=== PATIENT | female | born 1935 | race Caucasian/White ===

== ENCOUNTER 2017-04-26 20:00 | Emergency (ER) | payer MEDICARE, OTHER ==
[2017-04-26] MEDS ORDERED: Sodium Chloride 0.9% 500 ML IV ONE (21:07)
[2017-04-26] MEDS ORDERED: Potassium Chloride 20 MEQ Tab.ER PO ONE (21:08)
--- NOTE | 2017-04-26 22:22 | EDM.PDOC ---
ED HPI GENERAL MEDICAL PROBLEM - General Chief Complaint: General Time Seen by Provider: 04/26/17 20:00 Source of Information: Reports: Patient, Family History Limitations: Reports: Physical Impairment - History of Present Illness INITIAL COMMENTS - FREE TEXT/NARRATIVE: 82 years old w f with a h/o HTN came to the ed because she fees "not right", c/ o gen body ache in the past few days.. Family is present. Pt could not specify the reason, why she came to the ed. BP 156/56 pulse 78, Temp 36.6 O2 96 on RA RR 17. No N/V/D no dizziness, denies any acute medical issues. Onset: Unknown/Unsure Onset Date: 04/23/17 Onset Time: 08:00 Duration: Day(s):, Intermittent Location: Reports: Generalized Quality: Reports: Same as Previous Episode, Other (feeling weak) Severity: Mild Improves with: Reports: None Worsens with: Reports: None Context: Reports: Activity - Related Data Allergies Allergy/AdvReac Type Severity Reaction Status Date / Time codeine Allergy Vomiting Verified 04/26/17 20:07 hydrochlorothiazide Allergy Vomiting Verified 04/26/17 20:07 pantoprazole [From Protonix] Allergy Vomiting Verified 04/26/17 20:07 Home Meds: Home Meds Atenolol 100 mg PO DAILY 04/26/17 [History] Esomeprazole [NexIUM] 20 mg PO DAILY 04/26/17 [History] Losartan Potassium 100 mg PO DAILY 04/26/17 [History] amLODIPine [Norvasc] 5 mg PO DAILY 04/26/17 [History] sitaGLIPtin Phos/Metformin HCl [Janumet 50-1,000 MG] 1 tab PO DAILY 04/26/17 [ History] Past Medical History HEENT History: Reports: Impaired Vision Cardiovascular History: Reports: Hypertension Respiratory History: Reports: None Gastrointestinal History: Reports: GERD OCCUPATIONAL THERAPY ASSIST History: Reports: Neurological History: Reports: None Psychiatric History: Reports: None Endocrine/Metabolic History: Reports: Diabetes, Type II Hematologic History: Reports: None Immunologic History: Reports: None Oncologic (Cancer) History: Reports: None Dermatologic History: Reports: None - Infectious Disease History Infectious Disease History: Reports: None - Past Surgical History Head Surgeries/Procedures: Reports: None Cardiovascular Surgical History: Reports: None Respiratory Surgical History: Reports: None GI Surgical History: Reports: Cholecystectomy Female Surgical History: Reports: Tubal Ligation Neurological Surgical History: Reports: None Musculoskeletal Surgical History: Reports: Other (See Below) Other Musculoskeletal Surgeries/Procedures:: knee surgery Dermatological Surgical History: Reports: None Social & Family History - Family History Family Medical History: Noncontributory - Tobacco Use Smoking Status *Q: Former Smoker Years of Tobacco use: 20 Packs/Tins Daily: 0.5 Used Tobacco, but Quit: Yes Month Tobacco Last Used: unknown Second Hand Smoke Exposure: No - Caffeine Use Caffeine Use: Reports: Tea - Recreational Drug Use Recreational Drug Use: No ED ROS GENERAL - Review of Systems Review Of Systems: See Below Constitutional: Reports: No Symptoms HEENT: Reports: No Symptoms Respiratory: Reports: No Symptoms Cardiovascular: Reports: No Symptoms Endocrine: Reports: No Symptoms GI/Abdominal: Reports: No Symptoms : Reports: No Symptoms Musculoskeletal: Reports: No Symptoms Skin: Reports: No Symptoms Neurological: Reports: No Symptoms Psychiatric: Reports: No Symptoms Hematologic/Lymphatic: Reports: No Symptoms Immunologic: Reports: No Symptoms ED EXAM, GENERAL - Physical Exam Exam: See Below Exam Limited By: Physical Impairment General Appearance: Alert, Mild Distress, Thin Eye Exam: Bilateral Eye: Normal Inspection Ears: Normal External Exam Ear Exam: Bilateral Ear: Auricle Normal Nose: Normal Inspection Throat/Mouth: Normal Inspection Head: Atraumatic, Normocephalic Neck: Normal Inspection, Supple, Non-Tender, Full Range of Motion Respiratory/Chest: No Respiratory Distress, Lungs Clear, Normal Breath Sounds Cardiovascular: Normal Peripheral Pulses, Regular Rate, Rhythm, No Edema, No Gallop, No JVD, No Murmur, No Rub Peripheral Pulses: 1+: Popliteal (L), Popliteal (R) GI/Abdominal: Normal Bowel Sounds, Soft, Non-Tender, No Organomegaly, No Distention, No Abnormal Bruit (Female) Exam: Deferred Rectal (Female) Exam: Deferred Back Exam: Normal Inspection, Full Range of Motion Extremities: Normal Inspection, Normal Range of Motion, Non-Tender, No Pedal Edema Neurological: Alert, Oriented, CN II-XII Intact, Normal Cognition, No Motor/ Sensory Deficits Psychiatric: Normal Affect, Normal Mood Skin Exam: Warm, Dry, Intact, Normal Color, No Rash Lymphatic: No Adenopathy Course - Vital Signs Text/Narrative:: 82 years old w f with a h/o HTN came to the ed because she fees "not right", c/ o gen body ache in the past few days.. Family is present. Pt could not specify the reason, why she came to the ed. BP 156/56 pulse 78, Temp 36.6 O2 96 on RA RR 17. No N/V/D no dizziness, denies any acute medical issues. PE: weak appearing 82 y.o.w.f sitting in the wheelchair, refusing to go on the bed. Sun tingert skin lower extr. no edema, head, neck lungs and abd. WNL Neuro : No focal weakness. Labs; Na 126, K 3.2 BUN 10, Cr. 0.5 CBC wnl, GFR>60 Lactic acid 1.1 UA: Maida hematuria Imaging: Not indicated Impression: Hyponatremia, hypokalemia., maida hematuria Tx: NS, K - Dur 40 meq. water Reexam: Pt felt much improved, was able to ambulate and requested to be discharged Plan: D/C with instructions Last Recorded V/S: Last Vital Signs Temp 36.7 C 04/26/17 22:25 Pulse 76 04/26/17 22:25 Resp 18 04/26/17 22:25 BP 132/62 04/26/17 22:25 Pulse Ox 99 04/26/17 22:25 - Orders/Labs/Meds Labs: Laboratory Tests 04/26/17 04/26/17 04/26/17 Range/Units 20:15 20:30 20:30 WBC 5.1 (4.5-12.0) X10-3/uL RBC 4.55 (3.23-5.20) x10(6)uL Hgb 14.1 (11.5-15.5) g/dL Hct 39.8 (30.0-51.3) % MCV 87.6 (80-96) fL MCH 31.1 (27.7-33.6) pg MCHC 35.5 H (32.2-35.4) g/dL RDW 11.5 (11.5-15.5) % Plt Count 234 (125-369) X10(3)uL MPV 8.1 (7.4-10.4) fL Neut % (Auto) 71.0 (46-82) % Lymph % (Auto) 21.0 (13-37) % Frontier % (Auto) 6.7 (4-12) % Eos % (Auto) 1 (1.0-5.0) % Baso % (Auto) 1 (0-2) % Neut # (Auto) 3.7 (1.6-8.3) # Lymph # (Auto) 1.1 (0.6-5.0) # Frontier # (Auto) 0.3 (0.0-1.3) # Eos # (Auto) 0.0 (0.0-0.8) # Baso # (Auto) 0.0 (0.0-0.2) # Sodium 126 L (135-145) mmol/L Potassium 3.3 L (3.5-5.3) mmol/L Chloride 92 L (100-110) mmol/L Carbon Dioxide 22 L (23-29) mmol/L BUN 10 (8-23) mg/dL Creatinine 0.5 L (0.6-1.3) mg/dL Est Cr Clr Drug Dosing TNP Estimated GFR (MDRD) > 60 (>60) BUN/Creatinine Ratio 20.0 (9-20) Glucose 176 H (80-116) mg/dL Lactic Acid (0.5-2.2) mmol/L Calcium 9.1 (8.6-10.2) mg/dL Urine Color Yellow (YELLOW) Urine Appearance Clear (CLEAR) Urine pH 5.0 (5.0-6.5) Ur Specific [place] 1.010 (1.010-1.025) Urine Protein Negative (NEGATIVE) mg/dL Urine Glucose (UA) Normal (NEGATIVE) mg/dL Urine Ketones 15 H (NEGATIVE) mg/dL Urine Occult Blood Moderate H (NEGATIVE) Urine Nitrite Negative (NEGATIVE) Urine Bilirubin Negative (NEGATIVE) Urine Urobilinogen Normal (NEGATIVE) mg/dL Ur Leukocyte Esterase Negative (NEGATIVE) Urine RBC 5-10 (0) Urine WBC 0-5 (0) Ur Squamous Epith Cells Occasional (NS,R,O) Urine Bacteria Rare H (NS) 04/26/17 Range/Units 20:30 WBC (4.5-12.0) X10-3/uL RBC (3.23-5.20) x10(6)uL Hgb (11.5-15.5) g/dL Hct (30.0-51.3) % MCV (80-96) fL MCH (27.7-33.6) pg MCHC (32.2-35.4) g/dL RDW (11.5-15.5) % Plt Count (125-369) X10(3)uL MPV (7.4-10.4) fL Neut % (Auto) (46-82) % Lymph % (Auto) (13-37) % Frontier % (Auto) (4-12) % Eos % (Auto) (1.0-5.0) % Baso % (Auto) (0-2) % Neut # (Auto) (1.6-8.3) # Lymph # (Auto) (0.6-5.0) # Frontier # (Auto) (0.0-1.3) # Eos # (Auto) (0.0-0.8) # Baso # (Auto) (0.0-0.2) # Sodium (135-145) mmol/L Potassium (3.5-5.3) mmol/L Chloride (100-110) mmol/L Carbon Dioxide (23-29) mmol/L BUN (8-23) mg/dL Creatinine (0.6-1.3) mg/dL Est Cr Clr Drug Dosing Estimated GFR (MDRD) (>60) BUN/Creatinine Ratio (9-20) Glucose (80-116) mg/dL Lactic Acid 1.1 (0.5-2.2) mmol/L Calcium (8.6-10.2) mg/dL Urine Color (YELLOW) Urine Appearance (CLEAR) Urine pH (5.0-6.5) Ur Specific [place] (1.010-1.025) Urine Protein (NEGATIVE) mg/dL Urine Glucose (UA) (NEGATIVE) mg/dL Urine Ketones (NEGATIVE) mg/dL Urine Occult Blood (NEGATIVE) Urine Nitrite (NEGATIVE) Urine Bilirubin (NEGATIVE) Urine Urobilinogen (NEGATIVE) mg/dL Ur Leukocyte Esterase (NEGATIVE) Urine RBC (0) Urine WBC (0) Ur Squamous Epith Cells (NS,R,O) Urine Bacteria (NS) Meds: Medications Discontinued Medications Generic Name Dose Route Start Last Admin Trade Name Freq PRN Reason Stop Dose Admin Sodium Chloride 500 mls @ 999 mls/hr 04/26/17 21:07 04/26/17 21:20 Normal Saline IV 04/26/17 21:37 999 mls/hr .BOLUS ONE Administration Potassium Chloride 20 meq 04/26/17 21:08 04/26/17 21:22 Klor-Con M20 PO 04/26/17 21:09 20 meq ONETIME ONE Administration Departure - Departure Time of Disposition: 22:19 Disposition: Home, Self-Care 01 Condition: Good Clinical Impression: Hyponatremia, Hypokalemia Hematuria Qualifiers: Hematuria type: other microscopic Qualified Code(s): R31.29 - Other microscopic hematuria - Discharge Information Instructions: Hyponatremia, Hypokalemia Referrals: Audra Pedersen MAIL TELLER [Primary Care Provider] - Forms: ED Department Discharge Additional Instructions: Please f/u with your PMD in one week, please come back to the ed if your symptoms get worse acutely
== END 2017-04-26 22:35 | disposition home or self-care (01) ==
LOC: FB.ED 20:00
DX: E87.1 Hypo-osmolality and hyponatremia (principal); E87.6 Hypokalemia; R31.29 Other microscopic hematuria; I10 Essential (primary) hypertension; E11.9 Type 2 diabetes mellitus without complications; Z87.891 Personal history of nicotine dependence; Z79.899 Other long term (current) drug therapy; Z88.5 Allergy status to narcotic agent; Z88.8 Allergy status to other drugs, medicaments and biological substances
CPT/HCPCS: 36415; 80048; 81001; 83605; 85025; 96365; 99283; A9270; J7040; 99284

== ENCOUNTER 2022-11-16 08:37 | Emergency (ER) | payer MEDICARE, OTHER ==
[2022-11-16 09:22] LABS: BASOPHILS PERCENT AUTO 0.5 % (0.2-1.5); HEMATOCRIT 38.9 % (34.2-48.2); HEMOGLOBIN 13.5 g/dL (11.4-15.5); LYMPHOCYTES ABSOLUTE AUTO 0.8 x10-3/uL (1.0-4.4); LYMPHOCYTES PERCENT AUTO 11.1 % (18.4-52.1); MEAN CORPUSCULAR HEMOGLOBIN 30.7 pg (23.9-33.9); MEAN CORPUSCULAR HGB CONC 34.7 g/dL (31.9-34.8); MEAN CORPUSCULAR VOLUME 88.5 fL (76.7-100.5); MEAN PLATELET VOLUME 7.3 fL (7.1-12.4); MONOCYTES ABSOLUTE AUTO 0.4 x10-3/uL (0.3-1.0); MONOCYTES PERCENT AUTO 5.5 % (4.4-15.7); NEUTROPHILS ABSOLUTE AUTO 6.2 x10-3/uL (1.5-6.3); NEUTROPHILS PERCENT AUTO 82.9 % (30.8-76.2); PLATELET COUNT,PLT 383 x10(3)uL (151-488); RED BLOOD CELL COUNT 4.39 x10(6)uL (3.60-5.20); WHITE BLOOD CELL COUNT,WBC 7.5 x10-3/uL (3.0-10.3)
[2022-11-16 09:29] LABS: A/G RATIO 1.2; ALANINE AMINOTRANSFERASE,ALT 24 U/L (12-36); ALKALINE PHOSPHATASE 63 IU/L (56-112); ASPARTATE AMNIOTRANSFERASE,AST 24 IU/L (5-25); BILIRUBIN TOTAL 0.9 mg/dL (0.1-1.3); BLOOD UREA NITROGEN,BUN 8 mg/dL (7-18); BUN/CREATININE RATIO 13.3 (9-20); CALCIUM 9.3 mg/dL (8.6-10.2); CARBON DIOXIDE,CO2 24 mmol/L (21-32); CREATININE 0.6 mg/dL (0.55-1.02); EST CRCL DRUG DOSING (CG) 61.68 mL/min; ESTIMATED GFR 88 mL/min (>60); GLUCOSE RANDOM 239 mg/dL (80-116); POTASSIUM,K 3.3 mmol/L (3.5-5.3); PROTEIN TOTAL,TP 7.4 g/dL (6.0-8.0); SODIUM,NA 123 mmol/L (135-145)
[2022-11-16 09:32] LABS: CHLORIDE,CL 87 mmol/L (100-110)
[2022-11-16] MEDS ORDERED: Magnesium Sulfate/Water 4 GM in Premix Bag 1 BAG IV ONE (09:34)
[2022-11-16] MEDS ORDERED: Sodium Chloride 0.9% 1,000 ML IV ONE ×2 (10:17→12:00)
[2022-11-16 11:03] LABS: COLOR,URINE YELLOW (YELLOW)
[2022-11-16 11:04] LABS: APPEARANCE,URINE CLOUDY (CLEAR); BILIRUBIN,URINE NEGATIVE (NEGATIVE); EPITHELIAL CELLS,URINE RARE; GLUCOSE,URINE >1000 mg/dL (NORMAL); KETONES,URINE 50 mg/dL (NEGATIVE); LEUKOCYTE ESTERASE,URINE NEGATIVE (NEGATIVE); NITRITE,URINE POSITIVE (NEGATIVE); OCCULT BLOOD,URINE MODERATE (NEGATIVE); PROTEIN,URINE NEGATIVE (NEGATIVE); RBC,URINE 0-5 (0-5); UROBILINOGEN,URINE NORMAL (NEGATIVE); WBC,URINE 0-5 (0-5)
[2022-11-16 11:05] LABS: BACTERIA,URINE MANY (NS)
[2022-11-16] MEDS ORDERED: Potassium Chloride 20 MEQ Tab.ER PO ONE (11:25)
[2022-11-16] MEDS ORDERED: cefTRIAXone 2 GM Vial IVPUSH STA (11:46)
[2022-11-16] MEDS ORDERED: cefTRIAXone 1 GM Vial ONE (11:50)
[2022-11-16] MEDS ORDERED: cefTRIAXone 1 GM Vial IVPUSH ONE (11:56)
== END 2022-11-16 12:10 ==
LOC: FB.ED 08:37
DX: E87.1 Hypo-osmolality and hyponatremia (principal); E87.8 Other disorders of electrolyte and fluid balance, not elsewhere classified; R53.1 Weakness; K58.0 Irritable bowel syndrome with diarrhea; E83.42 Hypomagnesemia; R11.2 Nausea with vomiting, unspecified; N39.0 Urinary tract infection, site not specified; R81 Glycosuria; R31.29 Other microscopic hematuria; I10 Essential (primary) hypertension; E11.9 Type 2 diabetes mellitus without complications; K21.9 Gastro-esophageal reflux disease without esophagitis; Z79.899 Other long term (current) drug therapy; Z88.8 Allergy status to other drugs, medicaments and biological substances; Z88.5 Allergy status to narcotic agent
CPT/HCPCS: 36415; 80053; 81001; 83735; 85025; 86140; 87086; 87088; 87186; 93005; 96365; 96366; 96375; 99285; A9270; J0696; J3475; J7030